=== PATIENT | male | born 1960 | race African-American/Black ===

== ENCOUNTER 2016-07-27 11:36 | Outpatient (CLI) | payer OTHER ==
--- NOTE | 2016-07-27 15:04 | Diagnostic Imaging Report ---
Indications: Low back pain, epidural abscess, HIV/AIDS Technique: Sagittal STIR, sagittal and axial and T1 fat-saturated fast spin-echo, coronal, sagittal, axial T2 fast spin-echo sequences of the lumbar spine performed prior to IV gadolinium administration. Sagittal and axial T1-weighted fat-saturated fast spin-echo sequences performed following IV gadolinium administration. Findings: Comparison: None There is mild diffuse thickening and enhancement of the soft tissues of the epidural space surrounding the thecal sac at the L4-5 level. This is most prominent along the right lateral margin of the sac. This mildly indents the thecal sac. The paraspinous soft tissues at this level are likewise edematous and heterogeneously hyper enhancing, most prominently on the right, including involvement of the right psoas and erector spinae muscles. The latter appear to contain multiple small circumscribed masses/fluid collections which reside primarily posterior to the right L4-5 and L5-S1 facet joints. The facet joints demonstrate no significant increased fluid or abnormal enhancement. No associated bone marrow or intradiscal signal abnormality/abnormal enhancement demonstrated, except as follows. The L4-5 disc demonstrates mildly, diffusely decreased signal compared to rest and demonstrates mild diffuse annular bulge. Remaining lumbar intervertebral discs are normal in height and configuration without significant bulge/protrusion. The bilateral facet joints and ligaments at L4-5 are mildly hypertrophied. Facet joints and ligaments at remaining levels are unremarkable. Spinal canal is mildly narrowed to 9 mm AP diameter at L4-5. It is normal in caliber at remaining levels. No significant lateral recess or neural foraminal narrowing at any level. IMPRESSION: Findings compatible with acute inflammatory process/phlegmon in the epidural space of L4-5. No evidence of discrete epidural abscess. This finding, in conjunction with mild degenerative disc disease, facet and ligamentous hypertrophy at this level resulting in mild spinal stenosis and thecal sac compression. Findings compatible with acute inflammatory process in the paraspinous soft tissues/musculature at L4-5 and L5-S1, primarily on the right. Associated intramuscular masses/collections as described could but do not definitely represent small abscesses. No evidence of associated facet septic arthritis or spondylo-discitis
== END 2016-07-27 13:36 | disposition home or self-care (01) ==
LOC: MRI 11:36
DX: M54.5 Low back pain (principal); M51.36 Other intervertebral disc degeneration, lumbar region
CPT/HCPCS: 72158; A9585